=== PATIENT | female | born 2000 | race Caucasian/White ===

== ENCOUNTER 2020-01-31 14:40 | Emergency (ER) | payer BC, SELFPAY ==
--- NOTE | 2020-01-31 15:40 | HMH.EDUTC ---
[facility] Clinical Impression: Sinusitis Qualifiers: Sinusitis location: maxillary Chronicity: acute Recurrence: non-recurrent Qualified Code(s): J01.00 - Acute maxillary sinusitis, unspecified Disposition: Home, Self-Care Condition on Discharge: Good Instructions: DI for Sinusitis Prescriptions: Amoxicillin [Amoxicillin 875MG Tab] 875 mg PO Q12H #20 tab Transmission Status: Sent to [facility] predniSONE [Prednisone 20mg Tab] 20 mg PO BID 5 Days #10 tab Transmission Status: Sent to [facility] Referrals: PCP,No [Primary Care Provider] - Time of Disposition: 15:46 Medical Decision Making - Carlos Inquiry Pt receiving controlled substance: No [facility] [place] - General Stated complaint: sinus allergies Time Seen by Provider: 01/31/20 15:40 - History of Present Illness Provider Complaint: Sinus pain and pressure X 3 days. No fever. Denies ear pain, sore throat. Has a bad taste in her mouth. No cough or SOA. No vomiting or diarrhea. Onset (ago): day(s) (3) Location: face Relieving factors: none Exacerbating factors: none Associated symptoms: denies other symptoms Treatments prior to arrival: none - Related Data Home Medications Medication Instructions Recorded Confirmed Divalproex Sodium [Depakote] 125 mg PO BID 04/23/18 08/23/18 lamoTRIgine [Lamictal] 100 mg PO BID 04/23/18 08/23/18 Previous Rx's Medication Instructions Recorded Amoxicillin [Amoxicillin 875MG 875 mg PO Q12H #20 tab 01/31/20 Tab] predniSONE [Prednisone 20mg 20 mg PO BID 5 Days #10 tab 01/31/20 Tab] Allergies Allergy/AdvReac Type Severity Reaction Status Date / Time No Known Allergies Allergy Verified 02/22/18 16:47 [facility] History - Hepatitis A Screen Attestation statement:: This patient has been screened for Hepatitis A risk factors. I have reviewed the patient's past medical history: Yes Medical History: Reports:: Seizures Other Surgeries: Yes: No Previous Surgery - Social History Smoking Status: Never smoker Alcohol Intake: never Occupational Status: student Family Hx:: Diabetes, Coronary Artery Disease ROS Obtained: Yes All systems reviewed & no additional complaints - Constitutional Constitutional: Denies body ache, Denies chills, Denies fatigue, Denies fever(s), Reports lethargy, Reports malaise - Eyes Eyes: Denies eye discharge - ENT Ears, Nose, Mouth, and Throat: Denies dizziness, Denies otalgia, Denies headache(s), Reports nasal congestion, Reports nasal discharge, Reports sinus pain, Denies sore throat - Respiratory Respiratory: No cough, No dyspnea - Gastrointestinal Gastrointestingal: Denies: loose stools, vomiting Physical Exam - General General appearance: alert, in no apparent distress - Head Head exam: atraumatic, normocephalic, normal inspection - Eye Eye exam: Present: normal appearance, PERRL, EOMI - ENT ENT exam: Present: normal exam, normal oropharynx, mucous membranes moist, TM's normal bilaterally, normal external ear exam - Expanded ENT Exam Throat exam: Present: other (PND) - Neck Neck exam: Present: normal inspection, full ROM, trachea midline. Absent: meningismus, lymphadenopathy - Chest Chest inspection: Present: normal inspection, symmetric chest wall rise. Absent: tenderness - Respiratory Respiratory exam: Present: normal lung sounds bilaterally. Absent: respiratory distress - Cardiovascular Cardiovascular exam: Present: regular rate, normal rhythm. Absent: JVD - Abdominal Exam Abdominal exam: Present: soft, normal bowel sounds. Absent: distention, tenderness, guarding - Extremities Exam Extremities exam: Present: normal inspection, full ROM, normal capillary refill. Absent: calf tenderness - Back Exam Back exam: Present: normal inspection. Absent: tenderness - Neurological Exam Neurological exam: Present: alert, oriented X3 - Psychiatric Psychiatric exam: Present: normal affect, normal
[2020-01-31 15:54] VITALS: BP 105/77; PULSE 95; RESP 14; TEMP 36.6; O2SAT 95; BMI 40.2
[2020-01-31 15:58] VITALS: BP 105/77; PULSE 95; RESP 14; TEMP 36.6; O2SAT 95
== END 2020-01-31 15:59 | disposition home or self-care (01) ==
PROVIDERS: Emergency Provider Physician Assistant
DX: J01.00 Acute maxillary sinusitis, unspecified (principal); R56.9 Unspecified convulsions
CPT/HCPCS: 99201

== ENCOUNTER → 2021-06-07 19:27 | Outpatient (CLI) | payer BC, SELFPAY | PROVIDERS: Visit Provider Nurse Practitioner Family | DX: U07.1 COVID-19 (principal) | CPT/HCPCS: C9803; U0003; U0005 ==

== ENCOUNTER 2021-11-13 16:32 | Emergency (ER) | payer BC, SELFPAY ==
[2021-11-13 18:15] VITALS: BP 140/86; PULSE 105; RESP 19; TEMP 36.8; O2SAT 98; BMI 45.3
--- NOTE | 2021-11-13 18:53 | HMH.EDUTC ---
[facility] [place]ression: Poison laxmi dermatitis Disposition: Home, Self-Care Condition on Discharge: Good Instructions: Poison [place]ax[place], Poison [place], Poison [place], DI for Poison Laxmi Allergy, Prednisone Additional Instructions: Keep your rash clean and dry: Wash it with soap and water. Gently pat it dry with a clean towel. Try not to scratch or rub your rash: This can cause your skin to become infected. Use a compress on your rash: Dip a clean washcloth in cool water. Wring it out and place it on your rash. Leave the washcloth on your skin for 15 minutes. Do this at least 3 times per day. Take a cornstarch or oatmeal bath: If your rash is too large to cover with wet washcloths, take 3 or 4 cornstarch baths daily. Mix 1 pound of cornstarch with a little water to make a paste. Add the paste to a tub full of water and mix well. You may also use colloidal oatmeal in the bath water. Use lukewarm water. Avoid hot water because it may cause your itching to increase. Over the counter Calamine lotion may help with itching and to dry the rash Benadryl may help with itching Follow up with your Family Doctor or with Eye Doctor if symptoms around eye worsen Return if needed Start oral steriods tomorrow Prescriptions: predniSONE [Prednisone 10mg Tab Dose-Pack] 10 mg PO UD DOSE PK 6 Days #21 tab Transmission Status: Received by [id number] Referrals: Nato Durán MD [Primary Care Provider] - As needed Time of Disposition: 19:05 Medical Decision Making - Carlos Inquiry Pt receiving controlled substance: No Carlos was queried for this patient: No Vital Signs: 11/13/21 18:15 11/13/21 19:09 Temperature 98.3 F 98.3 F Temperature Source Oral Pulse Rate 105 H Pulse Rate [Right Brachial] 105 H Respiratory Rate 19 19 Blood Pressure 140/86 Blood Pressure [Right Arm] 140/86 Blood Pressure Mean [Right Arm] 104 Blood Pressure Source [Right Arm] Automatic Cuff Blood Pressure Position [Right Arm] Sitting 02 Sat by Pulse Oximetry 98 Oxygen Delivery Method Room Air Orders (Tests/Meds): ED MEDICATIONS Discontinued Medications Generic Name Dose Route Start Last Admin Trade Name Freq PRN Reason Stop Dose Admin Methylprednisolone Sodium Succinate 125 mg 11/13/21 18:58 11/13/21 19:08 Methylprednisolone Sod Succ 125mg Vial IM 11/13/21 18:59 125 mg ONCE ONE Administration [facility] [place] - General Stated complaint: R eye and facial Rash Time Seen by Provider: 11/13/21 18:53 Mode of Arrival: Ambulatory Source of Information: Patient Limitations: No Limitations Description of Symptoms (Recalled from Triage Doc. 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 and thinks she may be having an allergic reaction to something States that she has a itchy rash on her face, swelling in her right eye on both arms and breasts States that today her right eye was swollen and feels like it is moving to her left eye - Related Data Home Medications Medication Instructions Recorded Confirmed Divalproex Sodium [Depakote] 125 mg PO BID 04/23/18 11/13/21 lamoTRIgine [Lamictal] 100 mg PO BID 04/23/18 11/13/21 Previous Rx's Medication Instructions Recorded predniSONE [Prednisone 10mg Tab 10 mg PO UD DOSE PK 6 Days #21 tab 11/13/21 Dose-Pack] Allergies Allergy/AdvReac Type Severity Reaction Status Date / Time No Known Allergies Allergy Verified 06/07/21 13:14 - Worker's Comp Is this a Worker's Comp case?: No [facility] History - Hepatitis A Screen Attestation statement:: This patient has been screened for Hepatitis A ri
[2021-11-13 19:09] VITALS: BP 140/86; PULSE 105; RESP 19; TEMP 36.8; O2SAT 98
== END 2021-11-13 19:36 | disposition home or self-care (01) ==
PROVIDERS: Emergency Provider Nurse Practitioner; PCP Internal Medicine
DX: L23.7 Allergic contact dermatitis due to plants, except food (principal); G40.909 Epilepsy, unspecified, not intractable, without status epilepticus
CPT/HCPCS: 96372; 99212; G0463

== ENCOUNTER 2024-03-25 09:44 | Emergency (ER) | payer BC, SELFPAY ==
[2024-03-25 10:00] VITALS: BP 119/88; PULSE 80; RESP 19; TEMP 37; O2SAT 98; BMI 44.1
--- NOTE | 2024-03-25 10:29 | EXP.UTC ---
Discharge Plan Disposition Patient Disposition: Home, Self-Care Condition: Good Prescriptions Prescriptions: New prednisone 5 mg tablets,dose pack See Rx Instructions .ROUTE .COMPLEX Qty: 21 0RF Rx Instructions: take as directed on package instructions cephalexin 500 mg capsule 500 mg PO TID Qty: 30 0RF No Action lamotrigine 100 MG tablet 150 mg PO BID clobazam 10 mg tablet 10 mg PO DAILY Patient Comments: TAKE 1 TABLET BY MOUTH IN THE MORNING AND 1 & 1/2 (ONE & ONE-HALF) AT BEDTIME Referrals Follow up/Referrals: Provider,Referral, MD [Primary Care Provider] - See instructions Activity Restrictions/Add. Instructions Additional Instructions/Restrictions: Start oral steriods tomorrow Take oral antibitoics as prescribed Follow up with Dermatology if no improvement or any worsening of symptoms Follow up with Family Doctor Oatmeal baths may help with rash Calamine lotion may help with rash Straight to ER if any life threatening symptoms Clinical Impressions Clinical Impression: Rash and nonspecific skin eruption Instructions Patient Instructions: DI for Rash, Prednisone, Cephalexin Print Language Print Language: Occitan Discharge ED Provider: Carla Mercado [facility] General Stated complaint: face rash Mode of Arrival: Ambulatory Source of Information: Patient Limitations: No Limitations Time Seen by Provider: 03/25/24 10:29 Description of Symptoms (Recalled from Triage Doc. by RN): PATIENT C/O SWELLING OF LIPS AND ITCHY RASH TO LIPS, CHEEKS, CHIN, RIGHT HAND AND INSIDE OF MOUTH X 2 DAYS. 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 and has since started with rash on her lips, left side of face, neck and hands States that rash does itchy and it has started oozing on the left side of her face States that they wasnt sure if she got into poison yany or something while she was racking the hay or something else Related Data Home Medications ?Medication ?Instructions ?Recorded ?Confirmed lamotrigine 100 mg tablet 150 mg PO BID seizures 04/23/18 03/25/24 clobazam 10 mg tablet 10 mg PO DAILY 03/25/24 03/25/24 Previous Rx's ?Medication ?Instructions ?Recorded cephalexin 500 mg capsule 500 mg PO TID #30 caps 03/25/24 prednisone 5 mg tablets in a dose See Rx Instructions PO .COMPLEX 03/25/24 pack #21 tabs Allergies Allergy/AdvReac Type Severity Reaction Status Date / Time No Known Allergies Allergy Verified 06/07/21 13:14 Worker's Comp Is this a Worker's Comp case?: No [facility] Disclaimer: The information contained in this section may have been updated after the patient was seen, as this information can be updated by other users. Medical History (Updated 03/25/24 @ 10:44 by Carla Mercado APRN) Seizure disorder Social History Smoking Status: Never smoker alcohol intake: never current occupational status: other Travel in the last 8 weeks: None ROS Obtained: Yes All systems reviewed & no additional complaints except as documented and Yes Systems reviewed as appropriate & no additional complaints except as documented Constitutional Constitutional: Reports system reviewed and no additional complaints, except as documented and Reports as per HPI ENT Ears, Nose, Mouth, and Throat: Reports system reviewed and no additional complaints, except as documented and Reports as per HPI Cardiovascular Cardiovascular: Reports system reviewed and no additional complaints, except as documented and Reports as per HPI Respiratory Respiratory: Reports system reviewed and no additional complaints, except as documented and Reports as per HPI Gastrointestinal Gastrointestingal: Reports system reviewed and no additional complaints, except as documented and as per HPI Musculoskeletal Musculoskeletal: Reports system reviewed and no additional complaints, except as documented and Reports as per HPI Integumentary/Breasts Skin/Breast: Reports system reviewed and no additional complaints, except as documented, Reports as per HPI and Reports other (rash on face, lips, neck and hand oozing of rash noted on left side of face) Physical Exam General General appearance: alert and in no apparent distress ENT ENT exam: Present mucous membranes moist Expanded ENT Exam Mouth exam: Present normal external inspection and other (lips cracked); Absent drooling or trismus Respiratory Respiratory exam: Present normal lung sounds bilaterally; Absent respiratory distress or wheezes Cardiovascular Cardiovascular exam: Present regular rate and normal heart sounds; Absent normal rhythm or bradycardia Abdominal Exam Abdominal exam: Present soft, distention and normal bowel sounds Neurological Exam Neurological exam: Present alert, oriented X3 and normal gait Medical Decision Making Medical Records Screening: Per USPSTF and CDC recommendations, given the prevalence of disease in our region, it is our hospital?s policy to screen for HIV and viral Hepatitis for all patients aged 18 and over and those with ongoing risk factors. Carlos Inquiry Pt receiving controlled substance: No Carlos was queried for this patient: No Vital Signs: 03/25/24 10:00 Temperature 98.6 F Temperature Source Oral Pulse Rate [Left Brachial] 80 Respiratory Rate 19 Blood Pressure [Left Arm] 119/88 Blood Pressure Mean [Left Arm] 98 Blood Pressure Source [Left Arm] Automatic Cuff Blood Pressure Position [Left Arm] Sitting 02 Sat by Pulse Oximetry 98 Oxygen Delivery Method Room Air
[2024-03-25] MEDS: METHYLPREDNISOLONE SOD SUCC 125MG VIAL 125 MG IM (10:50)
[2024-03-25 11:02] VITALS: BP 119/88; PULSE 80; RESP 19; TEMP 37; O2SAT 98
== END 2024-03-25 11:04 | disposition home or self-care (01) ==
PROVIDERS: Emergency Provider Nurse Practitioner
DX: R21 Rash and other nonspecific skin eruption (principal)
CPT/HCPCS: 96372; 99212; 99214; G0463; J2919